=== PATIENT | female | born 1960 | race African-American/Black ===

== ENCOUNTER 2017-01-22 09:54 | Emergency (ER) | payer MEDICAID, MEDICARE ==
[~2017-01-22] VITALS: Ht 160 cm; Wt 65.0 kg
[2017-01-22] MEDS ORDERED: LORA0.5T2 PO (10:04)
[2017-01-22 10:43] LABS: BASOPHILS % 0.6 % (0.0-2.0); EOSINOPHILS % 0.3 % (0.0-5.0); HEMATOCRIT. 34.9 % (36.0-48.0); HEMOGLOBIN. 11.6 g/dL (12.0-16.0); LYMPHOCYTES % 11.4 % (20.0-50.0); MEAN CORPUSCULAR HEMOGLOBIN 29.1 pg (28.0-32.0); MEAN CORPUSCULAR VOLUME 87.6 fL (81.0-99.0); MEAN PLATELET VOLUME 7.6 fl (7.4-10.4); MONOCYTES % 9.2 % (2.0-8.0); NEUTROPHILS % 78.5 % (40.0-76.0); PLATELET 201 x1000/uL (130-400); RED BLOOD CELL COUNT 3.98 mill/uL (4.2-5.4); RED CELL DISTRIBUTION WIDTH 14.4 % (11.6-14.6)
[2017-01-22 10:55] LABS: INR 1.1; PARTIAL THROMBOPLASTIN TIME 25.6 sec (23.4-31.0); PROTHROMBIN TIME 10.9 sec (9.4-11.6)
[2017-01-22 11:01] LABS: CARBON DIOXIDE 27 mEq/L (21-32); CHLORIDE 104 mEq/L (98-107); TROPONIN I < 0.02 ng/mL (0.00-0.04)
[2017-01-22 15:13] VITALS: BP 140/91
== END 2017-01-22 16:30 | disposition home or self-care (01) ==
LOC: ER 10:16
DX: R52 Pain, unspecified (principal); I10 Essential (primary) hypertension; R40.4 Transient alteration of awareness; I25.10 Atherosclerotic heart disease of native coronary artery without angina pectoris; F32.9 Major depressive disorder, single episode, unspecified; I69.351 Hemiplegia and hemiparesis following cerebral infarction affecting right dominant side
CPT/HCPCS: 36415; 70450; 71010; 80053; 83690; 84484; 85025; 85610; 85730; 93005; 99285